=== PATIENT | male | born 1960 | race Caucasian/White ===

== ENCOUNTER 2021-05-11 13:45 | Emergency (ER) | payer MEDICAID, SELFPAY ==
[2021-05-11 13:57] VITALS: BP 171/65; PULSE 82; RESP 22; TEMP 36.5; O2SAT 92; BMI 19.2
[2021-05-11 14:14] VITALS: BP 154/84; PULSE 80; RESP 16; O2SAT 95
--- NOTE | 2021-05-11 14:23 | XR_ITS ---
WS: [id number] RIGHT RIBS, MULTIPLE VIEWS WITH PA CHEST HISTORY: right rib pain after fall COMPARISON: 09/13/2018 Lungs and mediastinum: Hyperinflated lungs with chronic emphysema. No pneumothorax or pulmonary contu denise identified. Ribs: Multiple views of the ribs are performed. Both the RIGHT and LEFT ribs were obtained. No fractu res are identified. Atelectasis at the lung bases. XR/XR ribs RT mn 3V w CXR1V [id number] IMPRESSION: Chronic emphysema. No rib fracture identified radiographically. No pneumothorax .
--- NOTE | 2021-05-11 14:24 | W.ED.NECK ---
HPI - Neck Pain/Injury General: Chief Complaint: Neck Pain/Injury Stated Complaint: back pain, rib pain Time Seen by Provider: 05/11/21 14:14 History of Present Illness: Patient is a 61-year-old male comes to the ED with right rib pain after fall. Patient has COPD and is on oxygen via nasal cannula continuously at home. approximately 1 week ago he slipped on some ice and fell landing on right side of body. Denies any head trauma or loss of consciousness. Ever since fall he has been having right rib pain. Pain is not improved over the last week. He takes tramadol to help with pain and his last dose of tramadol was at 9 AM this morning. Associated symptoms: Denies headache(s) or nausea Review of Systems Const: Denies: fever(s), chills or fatigue Eyes: Denies: change in vision or eye discomfort ENMT: Denies: throat pain, odynophagia, nasal discharge or nasal congestion Card: Denies: chest pain, palpitations, edema, swelling of feet/ankles, dyspnea on exertion or orthopnea Resp: Denies: dyspnea, productive cough or non-productive cough GI: Denies: abdominal pain, nausea, vomiting, diarrhea, constipation or hematochezia : Denies: flank pain, difficulty urinating, dysuria or hematuria Musc: Reports: other (Right rib pain); Denies: neck pain, back pain or extremity swelling Skin/Breast: Denies: rash or new lesions Neuro: Denies: headache(s) PFS ED PFSH: Medical History No pertinent family history Surgical History No pertinent past surgical history Physical Exam Const: COMMON NORMALS: no acute distress, patient oriented x3 and alert GENERAL APPEARANCE: cooperative and comfortable HENMT: COMMON NORMALS: normocephalic HEAD & SCALP: normocephalic MOUTH: Normal oral and palatal mucosa present THROAT: posterior oropharynx normal and uvula midline Neck/C-Spine: COMMON NORMALS: supple GENERAL: Yes normal visual inspection Chest: CHEST: Yes tenderness rib right mid-scapular line involving the 5th rib, involving the 6th rib and involving the 7th rib Resp: COMMON NORMALS: normal respiratory effort, No retractions, No use of accessory muscles and clear to auscultation bilaterally AUSCULTATION: clear to auscultation bilaterally Cardio: COMMON NORMALS: regular rate, regular rhythm, S1 normal heart sound present, S2 normal heart sound present, No gallops present (Cardio), No clicks present (Cardio), No murmurs present (Cardio) and Peripheral pulses 2+ throughout RATE: regular rate RHYTHM: regular rhythm HEART SOUNDS: S1 normal heart sound present and S2 normal heart sound present PERIPHERAL PULSES: Peripheral pulses 2+ throughout GI: COMMON NORMALS: Normal to inspection, nondistended, normoactive bowel sounds present, Soft to palpation, non-tender and no masses PALPATION: Yes Soft to palpation : COMMON NORMALS: Yes no CVA tenderness BLADDER/KIDNEY EXAM: Yes no CVA tenderness Back/Pelvis: COMMON NORMALS: no CVA tenderness Extremity: COMMON NORMALS: normal to inspection Neuro: COMMON NORMALS: patient oriented x3 and moves all extremities SENSORIUM/ORIENTATION: Yes alert Skin: GENERAL SKIN EXAM: dry skin Course Vital Signs: Vital signs: Vital Signs Temperature 97.7 F 05/11/21 13:57 Pulse Rate 80 05/11/21 14:14 Respiratory Rate 16 05/11/21 14:14 Blood Pressure 154/84 05/11/21 14:14 Pulse Oximetry 95 05/11/21 14:14 MDM - Neck Pain/Injury Medical Decision Making Patient is a 61-year-old male comes to the ED with right rib pain after fall. Patient has COPD and is on oxygen continuously at home. Patient said fall occurred after he slipped on some ice a week ago. Vitals are stable. He has some right mid scapular rib tenderness to palpation. Rib x-ray shows no acute fractures. Patient diagnosed with right rib pain and discharged home. Told to take his previously prescribed tramadol for pain. Follow-up with PCP in 7 to 10 days reevaluation. Return to ED precautions given. Patient understood and agree with plan. Discharge Plan Discharge Patient Disposition: Home Clinical Impression: Rib pain on right side Condition: Stable Discharge Orders: Discharge ED (Routine); Ordered 05/11/21 Ordered By: Lizandro Espinal Discharge Diet: Regular Discharge Activity: Increase activity as tolerated Patient Instructions: Rib Fracture (ED), Rib Contusion (ED) Activity Restrictions/Additional Instructions: Follow-up with medical provider as directed in 3 to 5 days for reevaluation. Call [facility] tomorrow morning to find out x-ray image results. Take your previously prescribed tramadol for pain. Apply cold pack on sore area of ribs to help with symptoms. Return to the ER or your medical provider if condition worsens. Please read and understand discharge instructions. Thank you for choosing [facility] for your healthcare needs today. Please realize this is an emergency room and that we are providing you with a medical screening exam and this may not be complete and all inclusive of all the testing and or work up that you may need to determine your ailment or severity of your illness. It is very important that you follow up as instructed or that you return to the Emergency Department should you have concerns or if your condition changes or worsens in any way. Coding Level of Care Code ED Inspector Floor Sub Assembly for Travon Echevarria Exam Comprehensive
[2021-05-11] MEDS: TRAMadol 50 mg Tablet PO (14:32)
== END 2021-05-11 16:45 | disposition home or self-care (01) ==
PROVIDERS: Emergency Provider Physician Assistant
DX: R07.81 Pleurodynia (principal)
CPT/HCPCS: 71101; 99283

== ENCOUNTER 2021-08-18 07:33 | Outpatient (CLI) | payer MEDICAID, SELFPAY ==
[2021-08-18 08:51] VITALS: BMI 19.3
--- NOTE | 2021-08-18 08:53 | NMCV_ITS ---
NM vidal perf SPECT r/s* [id number] Age: 61 Gender: M : 1960 Exam Date: 08/18/2021 09:39 Ordering Phys: Ayan Gary MD Technologist: GEORGI Estrada Exam Location: [facility] Indications: CHEST PAIN STRESS TEST Please see separate stress test report in [facility] for full findings IMAGE PROTOCOL Rest/Stress 1 Lexiscan Day Radiopharmaceutical Dose (mCi) Administration Site Administered by Rest: Tc-99m 10.8 IV GEORGI Jeffries Sestamibi Stress:Tc-99m 32.2 IV GEORGI Jeffries Sestamibi Rest: 18-Aug-2021 60 Discovery 630 Stress: 18-Aug-2021 30 Discovery 630 0.4mg Lexiscan. Images obtained in supine and prone position. SPECT RESULTS Technical Quality: Excellent Raw Data Analysis: Normal Image Corrections: No attenuation or motion correction applied Summed Stress Score: 0 Summed Rest Score: 1 Summed Difference Score: 0 PERFUSION FINDINGS SPECT images demonstrate homogeneous tracer distribution throughout the myocardium. FUNCTIONAL RESULTS (calculated via Gated SPECT) Stress Image LV EF (%): 61 Stress EDV (mL):85 TID: 1.1 Stress ESV (mL):33 FUNCTIONAL FINDINGS: There is normal left ventricular systolic function. IMPRESSIONS 1. Normal myocardial perfusion imaging with no evidence of ischemia. 2. LV systolic function is normal Juan Lopez MD (Electronically Signed) Final Date: 18 August 2021 12:02 S
--- NOTE | 2021-08-18 08:53 | ECG_ITS ---
[facility] Test Date: 2021-08-18 Pat Name: Ventura Ivey Department: Room: Gender: Male Loom Starter: Maeve Hudson : 1960 Requested By: Ayan Mancini Order Number: [id number] Laureen MD: Juan Lopez M.D. Interpretive Statements NAME OF STUDY: LEXISCAN SESTAMIBI STRESS TEST INDICATION: [afib] Procedure: At the baseline, the blood pressure was 158/88 mmHg with a heart rate of 68 bpm. The electrocardiogram showed normal sinus rhythm, normal axis with normal ST and T's. The Lexiscan was infused over a period of 20 seconds. A total of 0.4 mg of Lexiscan was infused. The stress phase was continued for a total of 5 minutes. Heart rate was at the end of stress phase was 82 bpm and a blood pressure of 152/87 mmHg. The EKG at the peak infusion revealed since normal sinus rhythm with no significant ST-T wave changes. Sestamibi was injected 20 seconds after the Lexiscan infusion. Blood pressure at the end of recovery phase was 145/83 mmHg with a heart rate of 82 bpm. Conclusion: 1. Normal EKG response to Lexiscan infusion 2. No Lexiscan induced chest pain or cardiac arrhythmia. 3. Normal blood pressure and heart rate response. 4. Sestamibi/sestamibi perfusion scan pending; see separate report. Electronically Signed On 09-25-2021 11:46:03 CDT by Juan Lopez M.D. [id number]
[2021-08-18 10:44] VITALS: BP 158/88; PULSE 80
[2021-08-18] MEDS: regadenoson 0.4 Mg/5 ml Syringe IVP (10:44)
== END 2021-08-18 07:34 | disposition home or self-care (01) ==
LOC: CDL 07:36
PROVIDERS: PCP Family Medicine; Visit Provider Family Medicine
DX: R07.89 Other chest pain (principal)
CPT/HCPCS: 78452; 93017; A9500; J2785

== ENCOUNTER 2022-07-22 11:03 | Emergency (ER) | payer MEDICAID, SELFPAY ==
[2022-07-22 11:11] VITALS: BP 143/85; PULSE 85; RESP 14; TEMP 36.4; O2SAT 93; BMI 17.2
== END 2022-07-22 13:06 | disposition left against medical advice (07) ==
PROVIDERS: Emergency Provider Family Medicine; PCP Family Medicine
DX: Z53.21 Procedure and treatment not carried out due to patient leaving prior to being seen by health care provider (principal)

== ENCOUNTER → 2022-09-12 15:25 | Outpatient (BNVA) | payer MEDICAID, SELFPAY | PROVIDERS: PCP Family Medicine; Visit Provider Family Medicine | DX: N28.9 Disorder of kidney and ureter, unspecified (principal); E88.09 Other disorders of plasma-protein metabolism, not elsewhere classified; L03.119 Cellulitis of unspecified part of limb; L02.619 Cutaneous abscess of unspecified foot | CPT/HCPCS: 80053; 85025 ==

== ENCOUNTER → 2022-10-17 16:41 | Outpatient (BNVA) | payer MEDICAID, SELFPAY | PROVIDERS: PCP Family Medicine; Visit Provider Family Medicine | DX: F41.9 Anxiety disorder, unspecified (principal); D64.9 Anemia, unspecified | CPT/HCPCS: 83550 ==

== ENCOUNTER → 2022-11-11 10:08 | Outpatient (BNVA) | payer MEDICAID, SELFPAY | PROVIDERS: PCP Family Medicine; Visit Provider Family Medicine | DX: D64.9 Anemia, unspecified (principal); R30.0 Dysuria | CPT/HCPCS: 81003; 82270; 87086 ==

== ENCOUNTER → 2022-11-28 10:47 | Outpatient (BNVA) | payer MEDICAID, SELFPAY | PROVIDERS: PCP Family Medicine; Visit Provider Family Medicine | DX: N28.9 Disorder of kidney and ureter, unspecified (principal); D64.9 Anemia, unspecified | CPT/HCPCS: 80053; 85025 ==

== ENCOUNTER → 2022-12-26 09:30 | Outpatient (BNVA) | payer MEDICAID, SELFPAY | PROVIDERS: PCP Family Medicine; Visit Provider Family Medicine | DX: D64.9 Anemia, unspecified (principal) | CPT/HCPCS: 83540; 85025 ==

== ENCOUNTER → 2023-01-30 10:56 | Outpatient (BNVA) | payer MEDICAID, SELFPAY | PROVIDERS: PCP Family Medicine; Visit Provider Family Medicine | DX: D64.9 Anemia, unspecified (principal); K92.2 Gastrointestinal hemorrhage, unspecified | CPT/HCPCS: 85025 ==

== ENCOUNTER 2023-05-05 13:27 | Outpatient (CLI) | payer MEDICAID, SELFPAY ==
--- NOTE | 2023-05-05 13:36 | CT_ITS ---
WS: [id number] CT CHEST TECHNIQUE: Noncontrast CT of the chest with coronal and sagittal reformatted images. CLINICAL INFORMATION: PLEURAL EFFUSION/ABNORMAL CHEST CT COMPARISON: None. DLP: 285.[address] scans at [facility] use at least one of these dose optimization techniques: automated e xposure control; mA and/or kV adjustment per patient size (includes targeted exams where dose is matc hed to clinical indication); or iterative reconstruction. FINDINGS: Advanced chronic emphysematous changes. Pleural parenchymal scarring with volume loss in the LEFT upp er lobe. Traction bronchiectasis LEFT upper lobe with pleural parenchymal scarring. Associated air br onchograms. Volume loss LEFT upper lobe. RIGHT to LEFT mediastinal shift. LEFT upper lobe pleural thickening some of which may be postoperative. RIGHT lung is well aerated. No rmal caliber thoracic aorta. Aortic calcification. No mediastinal or hilar lymphadenopathy. Adrenal glands are normal. Air-fluid level in the stomach. Tiny esophageal hernia. Mild thoracic kyph osis. IMPRESSION: 1. Advanced chronic emphysematous changes with hyperinflation. 2. Pleural parenchymal scarring with traction bronchiectasis in the LEFT upper lobe with traction on the LEFT hilum. Associated pleural thickening in the LEFT upper lobe with pleural thickening. This m ay be due to prior postoperative changes. Recommend correlation with clinical history. 3. Volume loss LEFT lung with RIGHT to LEFT mediastinal shift. 4. Tiny subpleural nodule RIGHT upper lobe peripherally measuring 4.5 mm. 5. No mediastinal or hilar lymphadenopathy. 6. Tiny esophageal hiatal hernia.
== END 2023-05-05 13:28 | disposition home or self-care (01) ==
LOC: RAD 13:27
PROVIDERS: PCP Family Medicine; Visit Provider Student in an Organized Health Care Education/Training Program
DX: J90 Pleural effusion, not elsewhere classified (principal); J43.9 Emphysema, unspecified; J47.9 Bronchiectasis, uncomplicated
CPT/HCPCS: 71250

== ENCOUNTER → 2023-09-18 10:15 | Outpatient (BNVA) | payer MEDICAID, SELFPAY | PROVIDERS: PCP Family Medicine; Visit Provider Family Medicine | DX: Z12.5 Encounter for screening for malignant neoplasm of prostate (principal); I10 Essential (primary) hypertension; D64.9 Anemia, unspecified; J44.9 Chronic obstructive pulmonary disease, unspecified; E55.9 Vitamin D deficiency, unspecified | CPT/HCPCS: 80053; 80061; 82306; 84443; 85025; G0103 ==

== ENCOUNTER → 2024-04-30 09:20 | Outpatient (BNVA) | payer MEDICAID, SELFPAY | PROVIDERS: PCP Family Medicine; Visit Provider Family Medicine | DX: R33.9 Retention of urine, unspecified (principal) | CPT/HCPCS: 80053; 80061; 81000; 82306; 82607; 82728; 82746; 83550; 83735; 84439; 84443; 85025 ==

== ENCOUNTER → 2024-07-02 13:25 | Outpatient (BNVA) | payer MEDICAID, SELFPAY | PROVIDERS: PCP Family Medicine; Visit Provider Family Medicine | DX: E87.6 Hypokalemia (principal); I10 Essential (primary) hypertension; R97.20 Elevated prostate specific antigen [PSA]; D50.9 Iron deficiency anemia, unspecified; J96.11 Chronic respiratory failure with hypoxia | CPT/HCPCS: 80048; 82728; 83550; G0103 ==